=== PATIENT | male | born 1975 | race Two or more races ===

== ENCOUNTER 2020-10-07 00:26 | Inpatient (IN) | payer MEDICAID, OTHER ==
[2020-10-07] VITALS (71 sets, daily range): BP systolic 87–137; BP diastolic 58–88
[~2020-10-07] VITALS: Ht 165.1 cm; Wt 72.0 kg
[2020-10-07] MEDS ORDERED: ONDANSETRON HCL/PF 4 MG/2 ML VIAL IVP ONE (01:00)
[2020-10-07] MEDS ORDERED: IV NS 0.9% 1,000 ML BAG IV ONE ×2 (01:00→01:30)
[2020-10-07] MEDS ORDERED: ONDANSETRON HCL/PF 4 MG/2 ML VIAL ONE (01:15)
[2020-10-07] MEDS ORDERED: LIDOCAINE 2% JEL UROJET 10 ML MM ONE (01:15)
[2020-10-07] MEDS ORDERED: ACETAMINOPHEN 650 MG/SUPP.RECT RC ONE ×2 (01:16→01:30)
[2020-10-07 01:42] LABS: BASOPHILS # (AUTO) 0.1 K/uL (0.0-0.2); BASOPHILS % (AUTO) 0.7 % (0.0-2.0); HEMATOCRIT 55 % (39-51); HEMOGLOBIN 17.4 g/dL (13.5-17.5); LYMPHOCYTES # (AUTO) 2.9 K/uL (0.8-4.8); LYMPHOCYTES % (AUTO) 13.7 % (20.0-44.0); MEAN CORPUSCULAR HGB CONC 32 g/dl (31.0-36.0); MEAN CORPUSCULAR VOLUME 99 fL (80-96); MONOCYTES % (AUTO) 4.8 % (2.0-12.0); NEUTROPHILS % (AUTO) 80.8 % (43.0-81.0); PLATELET COUNT (AUTO) 197 K/uL (150-450); RED BLOOD CELL COUNT(AUTO) 5.53 MIL/uL (4.5-6.0)
--- NOTE | 2020-10-07 01:57 | NUR ---
PATIENT CAME TO ER [facility] FROM [facility] FOR C/O FEVER, HYPERGLYCEMIA, AND SOB. PATIENT IS ALERT AND ORIENTED x0. PATIENT IS GIVEN 6L OF SIMPLE FACE MASK AND SATURATING AT 95%. PATIENT IS CONNECTED TO TA CARDIAC MONITIR
[2020-10-07 02:04] LABS: ALANINE AMINOTRANSFERASE 100 U/L (12-78); ALBUMIN 3.1 g/dL (3.4-5.0); ALKALINE PHOSPHATASE 137 U/L (46-116); ASPARTATE AMINOTRANSFERASE 39 U/L (15-37); BILIRUBIN,DIRECT 0.1 mg/dL (0.0-0.2); BILIRUBIN,TOTAL 0.4 mg/dL (0.2-1.0); CALCIUM, SERUM 8.8 mg/dL (8.5-10.1); CARBON DIOXIDE 29 mmol/L (21-32); CHLORIDE 120 mmol/L (98-107); CREATININE 4.8 mg/dL (0.6-1.3); LIPASE 248 U/L (73-393); POTASSIUM 3.7 mmol/L (3.5-5.1); TOTAL PROTEIN, SERUM 7.6 g/dL (6.4-8.2)
[2020-10-07 02:06] LABS: GLUCOSE 588 mg/dL (74-106); UREA NITROGEN, BLOOD 141 mg/dL (7-18)
[2020-10-07] MEDS: NOREPINEPHRINE 8 MG in IV NS 0.9% 242 ML IV PRN ×3 (02:06→06:56)
[2020-10-07 02:07] LABS: SODIUM SERUM 163 mmol/L (136-145)
[2020-10-07] MEDS ORDERED: PIPERACILLIN /TAZOBACTAM 3.375 G VIAL IV ONE (02:09)
[2020-10-07] MEDS ORDERED: VANCOMYCIN 1 GM VIAL ONE (02:09)
[2020-10-07] MEDS ORDERED: ASPIRIN 300 MG/SUPP.RECT RC ONE ×2 (02:10→02:30)
[2020-10-07 02:14] LABS: BILIRUBIN,URINE SMALL (NEGATIVE); COLOR,URINE YELLOW (YELLOW); LEUKOCYTE ESTERASE ,URINE NEGATIVE (NEGATIVE); NITRITE, URINE NEGATIVE (NEGATIVE); PH,URINE 5.5 (5.0-8.0); PROTEIN,URINE >=300 mg/dl (NEGATIVE); UGLUCOSE >=1000 mg/dL (NEGATIVE); UROBILINOGEN,URINE 0.2 EU/dL (0.2)
[2020-10-07 02:20] LABS: BACTERIA,URINE None seen /HPF (None Seen); SQUAMOUS EPITHELIAL CELL,UR None Seen /HPF (None Seen); URINE AMORPHOUS PHOSPHATES Moderate /HPF (None Seen); WBC,URINE 0-2 /HPF (0-3)
[2020-10-07] MEDS ORDERED: PIPERACILLIN /TAZOBACTAM 3.375 G in IV D5W 50 ML IV ONE (02:30)
[2020-10-07] MEDS ORDERED: VANCOMYCIN 1 GM in IV D5W 250 ML IV ONE (02:30)
[2020-10-07] MEDS ORDERED: NOREPINEPHRINE 4 MG/4 ML AMPUL IV ONE (02:31)
--- NOTE | 2020-10-07 02:36 | NUR ---
LEVOPHED IV STARTED PER MD'S ORDER
[2020-10-07] MEDS ORDERED: INSULIN REGULAR, HUMAN 100 UNIT/ML 10 ML VIAL ONE (03:19)
[2020-10-07] MEDS ORDERED: INSULIN REGULAR, HUMAN 100 UNIT/ML 10 ML VIAL IV ONE ×2 (03:30→06:00)
--- NOTE | 2020-10-07 03:39 | NUR ---
report given to Yissel MILLARD for maged.
--- NOTE | 2020-10-07 03:50 | NUR ---
MANOHAR DAVID DNP PAGED PER ER MD ORDER.
--- NOTE | 2020-10-07 04:14 | NUR ---
MANOHAR DAVID DNP PAGED PER ER MD ORDER.
[2020-10-07] MEDS ORDERED: DOCU100C36 PO (04:42)
[2020-10-07] MEDS ORDERED: APIX2.5T PO (04:43)
[2020-10-07] MEDS ORDERED: LEVE500T9 PO (04:44)
--- NOTE | 2020-10-07 04:50 | NUR ---
WINDOW SHADE CLOTH SEWER RCD PT FROM ER W/O ADMISSION ORDERS
[2020-10-07] MEDS ORDERED: DEXTROSE 50%-WATER 50 ML DISP.SYRIN IV PRN ×2 (05:30→21:00)
[2020-10-07] MEDS ORDERED: DOCUSATE SODIUM 100 MG CAPSULE PO ONE (05:30)
[2020-10-07] MEDS ORDERED: INSULIN REGULAR, HUMAN 100 UNIT/ML 3 ML VIAL SQ PRN (05:30)
[2020-10-07 05:44] LABS: CALCIUM, SERUM 7.6 mg/dL (8.5-10.1); CREATININE 4.3 mg/dL (0.6-1.3); POTASSIUM 4.4 mmol/L (3.5-5.1)
[2020-10-07] MEDS ORDERED: NOREPINEPHRINE 8 MG in IV NS 0.9% 242 ML IV PRN (06:00)
[2020-10-07] MEDS ORDERED: BLOOD SUGAR DIAGNOSTIC 1 EACH STRIP IN SCH (06:00)
[2020-10-07] MEDS: IV 1/2NS 1000 ML 1,000 ML IV PRN ×4 (06:19→21:50)
[2020-10-07] MEDS ORDERED: INSULIN REGULAR, HUMAN 100 UNIT in IV NS 0.9% 99 ML IV PRN (07:00)
--- NOTE | 2020-10-07 07:00 | NUR ---
RECEIVED PT ON BED ASLEEP LETHARGIC, ON 10L O2 VIA MASK SPO2 92-95% NO SOB NOTED TELE MONITOR READS SINUS TACHY 102, HAVE LFA#20 WITH ONGOING LEVOPHED @ 0.3 MCG/KG/MIN AND 1/2 NS @ 200ML/HR INFUSING WELL, VAIL CATHETER DRAINING DARK YELLOW URINE BED ON LOWEST POSITION AND LOCKED SIDE RAILS UP X2 WILL CONT TO MONITOR
[2020-10-07] MEDS ORDERED: Z GUARD REMEDY 2 OZ OINT TP PRN (07:30)
[2020-10-07] MEDS ORDERED: ACETAMINOPHEN 325 MG TABLET PO PRN (07:30)
[2020-10-07] MEDS ORDERED: ZOLPIDEM TARTRATE 5 MG TABLET PO PRN (07:30)
[2020-10-07] MEDS ORDERED: ONDANSETRON HCL/PF 4 MG/2 ML VIAL IVP PRN (07:30)
[2020-10-07] MEDS ORDERED: HYDROCORTISONE SOD SUCCINATE 100 MG/2 ML VIAL IV SCH (08:30)
[2020-10-07 08:45] LABS: CHOLESTEROL 149 mg/dL (<200); HDL CHOLESTEROL 20 mg/dL (40-60); LDL 56 mg/dL (0-99); TRIGLYCERIDES 464 mg/dL (30-150)
[2020-10-07 08:45] LABS: ABG BASE EXCESS -3.5 mmol/L; ABG OXYGEN SATURATION 92.3 % (92.0-98.5); ABG PH 7.321 (7.350-7.450); AaDO2 310.3 mmHg; COHb 0.3 % (0.5-1.5); MetHb 0.3 % (0.0-1.5); O2Hb 91.7 % (94.0-97.0); SITE, ABG Right Radial; VENT MODE, BG 10LPM VIA SIMPLE MASK
[2020-10-07] MEDS: LEVETIRACETAM SOL (5 ML) 100 MG/ML UDC PO SCH ×2 (08:46→21:20)
[2020-10-07] MEDS: APIXABAN 2.5 MG TABLET PO SCH ×2 (08:47→17:16)
[2020-10-07 11:12] LABS: CALCIUM, SERUM 7.2 mg/dL (8.5-10.1); CREATININE 3.8 mg/dL (0.6-1.3); POTASSIUM 3.9 mmol/L (3.5-5.1)
[2020-10-07] MEDS: BLOOD SUGAR DIAGNOSTIC 1 EACH STRIP IN SCH ×10 (11:14→20:18)
--- NOTE | 2020-10-07 11:28 | NUR ---
REPORTED TO DR. HOFF THAT CORTISOL LVL OF THE PT IS 46.1 WITH ORDER TO DC JANNETTE MANNING NOTED AND CARRIED OUT
[2020-10-07] MEDS ORDERED: FLUDROCORTISONE 0.1 MG TABLET NG SCH (12:00)
[2020-10-07] MEDS: PIPERACILLIN /TAZOBACTAM 2.25 G in IV D5W 50 ML IV SCH ×3 (12:04→23:29)
--- NOTE | 2020-10-07 14:45 | NUR ---
RN/ICU-RECEIVED PT. FROM RICARDO DYER, PT. SLEEPING, AROUSABLE, WOLOF SPEAKING, NODS HEAD WHEN ASKED IF OK, OTHERWISE DOES NOT FOLLOW COMMANDS AT THIS TIME. BREATHING COMES EASY W/ O2 SUPPORT OF 10L SM, SATS-99%, EKG SR W/ HR-91. BP-103/68, ON LEVOPHED DRIP AT 0.06 MCG/KG/MIN. WILL TITRATE TO KEEP SBP>90 PER PROTOCOL. ON INSULIN DRIP AT 3UNITS PER HR PER PROTOCOL. WILL CONTINUE ACCU CHECKS Q1HR USING FORMULA BS X 1.5/100. AFEBRILE. PT. IS A FULL CODE. NO S/S OF PAIN OR DISTRESS.
[2020-10-07 15:14] LABS: CALCIUM, SERUM 7.2 mg/dL (8.5-10.1); CREATININE 3.6 mg/dL (0.6-1.3); POTASSIUM 3.8 mmol/L (3.5-5.1)
--- NOTE | 2020-10-07 17:08 | NUR ---
rRN/ICU- SPOKE TO DR. NATHAN R/T PT. LATEST BS-199, W/ PHONE ORDER TO CONTINUE ACCUCHECK NEXT 2 HRS AND REFER TO HOSPITALIST NAVAL INSPECTOR AFTER. CONTINUE CURRENT IVF.
--- NOTE | 2020-10-07 17:38 | NUR ---
RN/ICU-DR. ROSADO HERE TO SEE PT. UPDATE GIVEN TO SAME.
--- NOTE | 2020-10-07 19:00 | NUR ---
RN/ICU- PT. REMAINS ON INSULIN DRIP AT 3 UNITS/HR. LATEST ACCU CHECK 212, WILL NOTIFY HOSPITALIST MOBILE SOLUTIONS ARCHITECT. ON LEVOPHED DRIP AT 0.04 MCG/KG/MIN. LATEST BP-116/80 WILL CONTINUE TO TITRATE PER PROTOCOL. PT. STATUS UNCHANGED. REPOT GIVEN TO FREEMAN AMES.
--- NOTE | 2020-10-07 19:30 | NUR ---
FIELD ACCOUNT DIRECTOR RCD PT W/DX SEPSIS. NSR ON MONITOR. SIMPLE MASK 10 L SATURATION 100%. LEVOPHED AT 0.04 MCG/KG/MIN. GTUBE WITH ORDER TO START TUBE FEEDING NOTED. SKIN INTACT. VAIL CATHETER DRAINING YELLOW URINE WITH SEDIMENT. RIVKA PICC LINE WITH 1/2 NS @ 200 ML/HR. PT IS AWAKE. MUMBLES AND IS ABLE TO SAY SOME WORDS.
[2020-10-07 19:44] LABS: CREATININE 3.2 mg/dL (0.6-1.3); POTASSIUM 3.9 mmol/L (3.5-5.1)
--- NOTE | 2020-10-07 20:30 | NUR ---
BIOMASS PLANT MANAGER LEVOPHED TITRATED OFF 120/75 HR 83
[2020-10-07] MEDS: GLUCERNA 1.2 1,000 ML BOTTLE GT PRN (21:00)
--- NOTE | 2020-10-07 21:00 | NUR ---
MAINTENANCE REPAIRMAN INSULIN DRIP TITRATED OFF PER VEGETABLE I FARMWORKER ORDER; BEGIN Q6HR ACCU CHECK AT MIDNIGHT
[2020-10-07 22:18] LABS: CALCIUM, SERUM 6.9 mg/dL (8.5-10.1); CREATININE 3.1 mg/dL (0.6-1.3); POTASSIUM 3.7 mmol/L (3.5-5.1)
[2020-10-07] MEDS: INSULIN GLARGINE, 100 UNIT/ML CARTRIDGE SQ SCH (22:53)
[2020-10-08] VITALS (25 sets, daily range): BP systolic 90–109; BP diastolic 37–68
[2020-10-08] MEDS: BLOOD SUGAR DIAGNOSTIC 1 EACH STRIP IN SCH ×5 (00:40→23:24)
[2020-10-08] MEDS: INSULIN REGULAR, HUMAN 100 UNIT/ML 3 ML VIAL SQ PRN ×5 (00:42→23:27)
--- NOTE | 2020-10-08 02:30 | NUR ---
AIR AND HYDRONIC BALANCING TECHNICIAN PT AGGRESSIVE DURING BED BATH; ATTEMPTING TO PUNCH STAFF WITH LEFT HAND AND USING PROFANITY.
[2020-10-08] MEDS: IV 1/2NS 1000 ML 1,000 ML IV PRN ×2 (04:15→12:05)
[2020-10-08 04:53] LABS: CALCIUM, SERUM 6.8 mg/dL (8.5-10.1); CREATININE 2.8 mg/dL (0.6-1.3); MAGNESIUM 2.4 mg/dL (1.8-2.4); PHOSPHORUS 4.2 mg/dL (2.5-4.9); POTASSIUM 3.2 mmol/L (3.5-5.1)
[2020-10-08 05:18] LABS: BASOPHILS # (AUTO) 0.1 K/uL (0.0-0.2); BASOPHILS % (AUTO) 0.7 % (0.0-2.0); EOSINOPHILS % (AUTO) 0.3 % (0.0-6.0); HEMATOCRIT 38 % (39-51); LYMPHOCYTES # (AUTO) 2.9 K/uL (0.8-4.8); LYMPHOCYTES % (AUTO) 20.4 % (20.0-44.0); MEAN CORPUSCULAR HGB CONC 32 g/dl (31.0-36.0); MEAN CORPUSCULAR VOLUME 97 fL (80-96); MONOCYTES # (AUTO) 0.7 K/uL (0.1-1.30); MONOCYTES % (AUTO) 4.7 % (2.0-12.0); NEUTROPHILS # (AUTO) 10.4 K/uL (1.8-8.9); NEUTROPHILS % (AUTO) 73.9 % (43.0-81.0); PLATELET COUNT (AUTO) 105 K/uL (150-450); RED BLOOD CELL COUNT(AUTO) 3.92 MIL/uL (4.5-6.0); WHITE BLOOD COUNT (AUTO) 14.1 K/uL (4.3-11.0)
[2020-10-08 05:25] LABS: HEMOGLOBIN 12.2 g/dL (13.5-17.5)
[2020-10-08] MEDS: PIPERACILLIN /TAZOBACTAM 2.25 G in IV D5W 50 ML IV SCH ×4 (05:30→23:19)
--- NOTE | 2020-10-08 07:30 | NUR ---
OPENING NOTE: REPORT RECEIVED FROM SELAM MILLARD. PT AWAKE, NON COOPERATIVE, MUMBLES WORDS. ABLE TO MOVE LEFT ARM, SOMETIMES GETS AGGRESSIVE WITH ARM. TUBE FEEDING INFUSING WITHOUT DIFFICULTY. IV FLUIDS PER MD ORDERS. PT CHECKED ON HOURLY AND PRN BY NURSING STAFF.
[2020-10-08] MEDS: LEVETIRACETAM SOL (5 ML) 100 MG/ML UDC PO SCH ×2 (08:44→22:07)
[2020-10-08] MEDS: APIXABAN 2.5 MG TABLET PO SCH ×2 (08:46→17:38)
[2020-10-08] MEDS: INSULIN GLARGINE, 100 UNIT/ML CARTRIDGE SQ SCH ×2 (08:47→22:09)
--- NOTE | 2020-10-08 09:40 | NUR ---
PHONE REPORT GIVEN TO JOVAN MILLARD FOR PT TRANSFER TO ROOM 116-1
--- NOTE | 2020-10-08 10:35 | NUR ---
PT TRANSFERRED TO ROOM 116-1. SALES AND SERVICE REPRESENTATIVE PUT PT'S TELEMETRY ON PATIENT. NO PERSONAL BELONGINGS NOTED IN ROOM. JOVAN RN WAS IN PT'S ROOM PRIOR TO MULTIPLE SPINDLE ROUTER OPERATOR LEAVING ROOM.
--- NOTE | 2020-10-08 10:48 | NUR ---
ELECTRONIC TECHNICIAN NOTE RECEIVED PATIENT FROM ICU. PATIENT IS AWAKE AND ALERT; MUMBLES WORDS. VITALS: 101/60 HR 76 RR 18 TEMP 97.6 O2 98%. VAIL CATHETER NOTED - INTACT AND PATENT, EMPTIED BEFORE ARRIVAL TO ZEINAB FLOOR. IV ACCESS TO LEFT FA #20, LEFT HAND #22, AND RIGHT UPPER ARM PICC - RUNNING 1/2 NS @ 100ML/HR. PEG TUBE NOTED - INTACT, RUNNING GLUCERNA @ 70ML/HR. SKIN INTACT. SAFETY MEASURES IN PLACE. CALL LIGHT WITHIN REACH. WILL CONTINUE TO MONITOR.
[2020-10-08] MEDS ORDERED: VANCOMYCIN 1 GM in IV D5W 250 ML IV SCH (14:00)
--- NOTE | 2020-10-08 17:10 | NUR ---
FINANCIAL SERVICES COUNSELORDENTAL ASSOCIATE NOTE PATIENT A/OX1; OPENS EYES, NODS HEAD, APHASIC. TOLERATING ROOM AIR WELL WITH NO SOB. EXTERNAL DIESEL MAINTENANCE TECHNICIAN READS NSR AT 79. NO S/S OF PAIN OR DISCOMFORT. GTUBE PEG FEEDING GLUCERNA @70ML/HR; PATENT AND INTACT. LFA #20G S/L , L HAND #22G S/L, RIVKA PICCLINE 1/2 NS @ 100ML/HR; PATENT AND INTACT. F/C DRAINING URINE; PATENT AND INTACT. SAFETY MEASURES IN PLACE: BED IN LOWEST LOCKED POSITION, SIDE RAILS UPX2, CALL LIGHT WITHIN EASY REACH, BED ALARM ON. PATIENT IN STABLE CONDITION;WILL CONTINUE PLAN OF CARE.
--- NOTE | 2020-10-08 17:13 | NUR ---
TRANSFERRED PATIENT TO [facility]. REPORT GIVEN TO RADHA. PATIENT STABLE AND WAS TRANSFERRED WITH ALL BELONGINGS, MEDICATIONS, AND FEEDINGS.
[2020-10-08] MEDS: GLUCERNA 1.2 1,000 ML BOTTLE GT PRN (17:52)
[2020-10-09] MEDS: IV 1/2NS 1000 ML 1,000 ML IV PRN ×2 (02:11→21:15)
[2020-10-09] MEDS: PIPERACILLIN /TAZOBACTAM 2.25 G in IV D5W 50 ML IV SCH ×4 (05:35→23:03)
[2020-10-09] MEDS: BLOOD SUGAR DIAGNOSTIC 1 EACH STRIP IN SCH ×4 (05:44→23:03)
[2020-10-09] MEDS: INSULIN REGULAR, HUMAN 100 UNIT/ML 3 ML VIAL SQ PRN ×4 (05:46→23:03)
--- NOTE | 2020-10-09 07:29 | NUR ---
WET POUR MIXER CLOSING NOTE PATIENT A/OX1; OPENS EYES, NODS HEAD, APHASIC. TOLERATING ROOM AIR WELL WITH NO SOB. EXTERNAL VENEER SPLICER READS NSR AT 80'S. NO S/S OF PAIN OR DISCOMFORT. GTUBE PEG FEEDING GLUCERNA @70ML/HR; PATENT AND INTACT. LFA #20G S/L , L HAND #22G S/L, RIVKA PICCLINE 1/2 NS @ 100ML/HR; PATENT AND INTACT. F/C DRAINING CLEAR YELLOW URINE; PATENT AND INTACT. SAFETY MEASURES IN PLACE: BED IN LOWEST LOCKED POSITION, SIDE RAILS UPX2, CALL LIGHT WITHIN EASY REACH, BED ALARM ON. PATIENT IN STABLE CONDITION; ENDORSED PLAN OF CARE.
--- NOTE | 2020-10-09 07:30 | NUR ---
ASSISTANT DISTRICT ATTORNEY OPENING NOTE RECEIVED PATIENT ON BED, A/OX1; OPENS EYES, NODS HEAD, APHASIC. TOLERATING ROOM AIR WELL WITH NO SOB. EXTERNAL HORTICULTURE SUPERINTENDENT READS NSR AT 77 WITH NO S/S OF PAIN OR DISCOMFORT. GTUBE PEG FEEDING GLUCERNA @70ML/HR; PATENT AND INTACT. LFA #20G S/L , L HAND #22G S/L, RIVKA PICCLINE 1/2 NS @ 100ML/HR; PATENT AND INTACT. WITH F/C DRAINING CLEAR YELLOW URINE; PATENT AND INTACT. SAFETY MEASURES IN PLACE: BED IN LOWEST LOCKED POSITION, SIDE RAILS UPX2, CALL LIGHT WITHIN EASY REACH, BED ALARM ON. WILL CONTINUE TO MONITOR..
[2020-10-09 07:47] LABS: BASOPHILS % (AUTO) 0.3 % (0.0-2.0); HEMATOCRIT 31 % (39-51); HEMOGLOBIN 10.1 g/dL (13.5-17.5); LYMPHOCYTES # (AUTO) 1.8 K/uL (0.8-4.8); LYMPHOCYTES % (AUTO) 17.8 % (20.0-44.0); MEAN CORPUSCULAR HGB CONC 32 g/dl (31.0-36.0); MEAN CORPUSCULAR VOLUME 96 fL (80-96); MONOCYTES # (AUTO) 0.4 K/uL (0.1-1.30); MONOCYTES % (AUTO) 4.2 % (2.0-12.0); NEUTROPHILS # (AUTO) 7.6 K/uL (1.8-8.9); NEUTROPHILS % (AUTO) 74.7 % (43.0-81.0); PLATELET COUNT (AUTO) 89 K/uL (150-450); RED BLOOD CELL COUNT(AUTO) 3.24 MIL/uL (4.5-6.0); WHITE BLOOD COUNT (AUTO) 10.2 K/uL (4.3-11.0)
[2020-10-09 08:06] LABS: CALCIUM, SERUM 7.5 mg/dL (8.5-10.1); POTASSIUM 3.4 mmol/L (3.5-5.1)
[2020-10-09] MEDS: POTASSIUM CL. PREMIX PERIPHER. 50 ML IV SCH ×4 (08:45→13:23)
[2020-10-09] MEDS: LEVETIRACETAM SOL (5 ML) 100 MG/ML UDC PO SCH ×2 (08:45→20:57)
[2020-10-09] MEDS: APIXABAN 2.5 MG TABLET PO SCH ×2 (08:47→16:39)
[2020-10-09] MEDS: INSULIN GLARGINE, 100 UNIT/ML CARTRIDGE SQ SCH ×2 (08:48→23:02)
[2020-10-09] MEDS: GLUCERNA 1.2 1,000 ML BOTTLE GT PRN (16:37)
[2020-10-09] MEDS: VANCOMYCIN 1 GM in IV D5W 250 ML IV SCH (16:38)
--- NOTE | 2020-10-09 18:55 | NUR ---
SALMON GILLNET VESSEL OPERATOR CLOSING NOTE PATIENT ALERT AND ORIENTED X2; OPENS EYES, NODS HEAD, APHASIC. TOLERATING ROOM AIR WELL WITH NO SOB. EXTERNAL SACK REPAIRER READS NSR AT 83 . NO S/S OF PAIN OR DISCOMFORT. GTUBE PEG FEEDING GLUCERNA @70ML/HR; PATENT AND INTACT. LFA #20G S/L , L HAND #22G S/L, RIVKA PICCLINE 1/2 NS @ 100ML/HR; PATENT AND INTACT. F/C DRAINING CLEAR YELLOW URINE; PATENT AND INTACT. SAFETY MEASURES IN PLACE: BED IN LOWEST LOCKED POSITION, SIDE RAILS UPX2, CALL LIGHT WITHIN EASY REACH, BED ALARM ON. PATIENT IN STABLE CONDITION; WILL ENDORSE FOR CONTINUITY OF CARE TO THE NEXT SHIFT.
[2020-10-09 20:00] VITALS: BP 125/82
[2020-10-10] VITALS: BP 140/64
[2020-10-10] MEDS: BLOOD SUGAR DIAGNOSTIC 1 EACH STRIP IN SCH ×4 (05:33→23:02)
[2020-10-10] MEDS: INSULIN REGULAR, HUMAN 100 UNIT/ML 3 ML VIAL SQ PRN ×4 (05:35→23:02)
[2020-10-10] MEDS: IV 1/2NS 1000 ML 1,000 ML IV PRN ×2 (05:59→23:49)
[2020-10-10] MEDS: PIPERACILLIN /TAZOBACTAM 2.25 G in IV D5W 50 ML IV SCH ×2 (06:05→12:37)
[2020-10-10 06:49] LABS: BASOPHILS % (AUTO) 0.2 % (0.0-2.0); HEMATOCRIT 30 % (39-51); HEMOGLOBIN 9.9 g/dL (13.5-17.5); LYMPHOCYTES # (AUTO) 1.9 K/uL (0.8-4.8); MEAN CORPUSCULAR HGB CONC 33 g/dl (31.0-36.0); MEAN CORPUSCULAR VOLUME 95 fL (80-96); MONOCYTES # (AUTO) 0.4 K/uL (0.1-1.30); NEUTROPHILS # (AUTO) 5.3 K/uL (1.8-8.9); NEUTROPHILS % (AUTO) 66.8 % (43.0-81.0); PLATELET COUNT (AUTO) 97 K/uL (150-450); RED BLOOD CELL COUNT(AUTO) 3.12 MIL/uL (4.5-6.0)
--- NOTE | 2020-10-10 07:18 | NUR ---
METAL EXTRUSION SUPERVISOR OPENING NOTE RECEIVED PATIENT ON BED, A/OX1; OPENS EYES, NODS HEAD, APHASIC. TOLERATING ROOM AIR WELL WITH NO SOB. EXTERNAL MILITARY SCIENCE INSTRUCTOR READS NSR AT 87 WITH NO S/S OF PAIN OR DISCOMFORT. GTUBE PEG FEEDING GLUCERNA @70ML/HR; PATENT AND INTACT. LFA #20G S/L , L HAND #22G S/L, RIVKA PICCLINE 1/2 NS @ 100ML/HR; PATENT AND INTACT. WITH F/C DRAINING CLEAR YELLOW URINE; PATENT AND INTACT. SAFETY MEASURES IN PLACE: BED IN LOWEST LOCKED POSITION, SIDE RAILS UPX2, CALL LIGHT WITHIN EASY REACH, BED ALARM ON. WILL CONTINUE TO MONITOR
[2020-10-10 07:36] LABS: CALCIUM, SERUM 7.6 mg/dL (8.5-10.1); CREATININE 1.5 mg/dL (0.6-1.3); POTASSIUM 3.3 mmol/L (3.5-5.1)
[2020-10-10 08:00] VITALS: BP 141/89
[2020-10-10] MEDS: LEVETIRACETAM SOL (5 ML) 100 MG/ML UDC PO SCH ×2 (08:34→21:44)
[2020-10-10] MEDS: POTASSIUM CL. PREMIX PERIPHER. 50 ML IV SCH ×4 (08:34→11:39)
[2020-10-10] MEDS: INSULIN GLARGINE, 100 UNIT/ML CARTRIDGE SQ SCH ×2 (08:35→23:02)
[2020-10-10] MEDS: APIXABAN 2.5 MG TABLET PO SCH ×2 (08:42→17:10)
[2020-10-10] MEDS: GLUCERNA 1.2 1,000 ML BOTTLE GT PRN (09:47)
--- NOTE | 2020-10-10 10:12 | NUR ---
RN NOTE PLATELETS @ 97, MD NOTIFIED AND MD ORDERED TO CONTINUE ABIXABAN AT THIS TIME.
--- NOTE | 2020-10-10 15:26 | NUR ---
RN NOTE SPOKE WITH PHARMACY REGARDING 1600 DOSE OF VANCO, STATED OKAY TO GIVE UNTIL NEXT TROUGH. WILL CONTINUE TO MONITOR
[2020-10-10] MEDS: VANCOMYCIN 1 GM in IV D5W 250 ML IV SCH (15:31)
[2020-10-10 16:00] VITALS: BP 133/86
--- NOTE | 2020-10-10 17:39 | NUR ---
RN NOTE RECEIVED CALL FROM LAB REGARDING BLOOD CULTURES GRAM POSITIVE COCCI IN CLUSTERS SEEN ON GRAM STAIN, NOTIFIED, CONTINUE CURRENT ATB TREATMENT AT THIS TIME. WILL CONTINUE TO MONITOR
--- NOTE | 2020-10-10 18:31 | NUR ---
PARTY HOST CLOSING NOTE PATIENT ALERT AND ORIENTED X2; OPENS EYES, NODS HEAD, APHASIC. TOLERATING ROOM AIR WELL WITH NO SOB. EXTERNAL DOUGH PANNER READS NSR AT 87 . NO S/S OF PAIN OR DISCOMFORT. GTUBE PEG FEEDING GLUCERNA @70ML/HR; PATENT AND INTACT. LFA #20G S/L , L HAND #22G S/L, RIVKA PICCLINE 1/2 NS @ 100ML/HR; PATENT AND INTACT. F/C DRAINING CLEAR YELLOW URINE; PATENT AND INTACT. ALL MEDICATIONS GIVEN ORDERED. SAFETY MEASURES IN PLACE: BED IN LOWEST LOCKED POSITION, SIDE RAILS UPX2, CALL LIGHT WITHIN EASY REACH, BED ALARM ON. WILL ENDORSE TO ONCOMING SHIFT
[2020-10-10 20:37] VITALS: BP 139/86
[2020-10-11] VITALS: BP 116/83
[2020-10-11 04:51] VITALS: BP 127/84
[2020-10-11] MEDS: BLOOD SUGAR DIAGNOSTIC 1 EACH STRIP IN SCH ×3 (05:34→18:12)
[2020-10-11] MEDS: INSULIN REGULAR, HUMAN 100 UNIT/ML 3 ML VIAL SQ PRN (05:37)
[2020-10-11 06:42] LABS: BASOPHILS % (AUTO) 0.1 % (0.0-2.0); EOSINOPHILS % (AUTO) 4.7 % (0.0-6.0); HEMATOCRIT 31 % (39-51); HEMOGLOBIN 10.5 g/dL (13.5-17.5); LYMPHOCYTES # (AUTO) 1.9 K/uL (0.8-4.8); LYMPHOCYTES % (AUTO) 24.3 % (20.0-44.0); MEAN CORPUSCULAR HGB CONC 34 g/dl (31.0-36.0); MEAN CORPUSCULAR VOLUME 94 fL (80-96); MONOCYTES # (AUTO) 0.5 K/uL (0.1-1.30); MONOCYTES % (AUTO) 6.6 % (2.0-12.0); NEUTROPHILS # (AUTO) 4.9 K/uL (1.8-8.9); NEUTROPHILS % (AUTO) 64.3 % (43.0-81.0); PLATELET COUNT (AUTO) 104 K/uL (150-450); RED BLOOD CELL COUNT(AUTO) 3.31 MIL/uL (4.5-6.0); WHITE BLOOD COUNT (AUTO) 7.6 K/uL (4.3-11.0)
[2020-10-11 06:58] LABS: CREATININE 1.1 mg/dL (0.6-1.3); POTASSIUM 3.4 mmol/L (3.5-5.1)
[2020-10-11] MEDS: POTASSIUM CL. PREMIX PERIPHER. 50 ML IV SCH ×4 (08:17→10:45)
[2020-10-11] MEDS: IV 1/2NS 1000 ML 1,000 ML IV PRN (08:25)
[2020-10-11] MEDS: LEVETIRACETAM SOL (5 ML) 100 MG/ML UDC PO SCH ×3 (09:31→21:16)
[2020-10-11] MEDS: APIXABAN 2.5 MG TABLET PO SCH ×2 (09:33→18:00)
[2020-10-11] MEDS: INSULIN GLARGINE, 100 UNIT/ML CARTRIDGE SQ SCH ×2 (09:34→22:00)
[2020-10-11 09:35] VITALS: BP 141/90
[2020-10-11 14:00] VITALS: BP 138/95
--- NOTE | 2020-10-11 15:15 | NUR ---
TELE/RN NOTES PATIENT REFUSED TO DO BLOOD WORK FOR VANCO TROUGH. PHARMACY CALLED AND SAID TO JUST GO AHEAD AND GIVE THE 1600 VANCO IV ATB DOSE AND WILL RE-ORDER VANCO TROUGH FOR TOMORROW. NOTIFIED.
[2020-10-11] MEDS: VANCOMYCIN 1 GM in IV D5W 250 ML IV SCH (18:12)
--- NOTE | 2020-10-11 19:50 | NUR ---
MS/RN NOTES PATIENT REFUSED BLOOD SUGAR CHECK. PM NURSE NOTIFIED.
--- NOTE | 2020-10-11 19:52 | NUR ---
MS RN Opening Notes Patient was last seen sleeping in bed. Patient's alert and oriented x1-2. Patient's on room air with no respiratory distress noted. Patient has a RIVKA PICC line. Patient's in no acute distress at this time. Safety measures in place: Bed locked, bed alarm on, side rails up x3, and call light within reach of the patient. Will continue to monitor the patient.
[2020-10-11 20:00] VITALS: BP 129/90
--- NOTE | 2020-10-11 22:23 | NUR ---
MS RN Notes Patient refused his scheduled 2100 and 2200 medications. Risks have been explained to the patient. Patient refused to have his blood sugar checked at bedtime. Will continue to monitor the patient.
--- NOTE | 2020-10-11 22:42 | NUR ---
MS RN Notes Patient refused to have his 2 ordered blood cultures collected. KALYN Nieves was made aware. No new orders were given.
--- NOTE | 2020-10-12 | NUR ---
MS RN Notes Patient refused to have his blood sugar checked at 0000. Risks have been explained to the patient. Will continue to monitor the patient.
[2020-10-12] MEDS: IV 1/2NS 1000 ML 1,000 ML IV PRN (04:14)
[2020-10-12] MEDS: BLOOD SUGAR DIAGNOSTIC 1 EACH STRIP IN SCH ×4 (06:00→17:14)
--- NOTE | 2020-10-12 06:05 | NUR ---
MS RN Notes Patient refused to have his blood sugar checked at 0600. Risks have been explained to the patient. Will continue to monitor the patient.
[2020-10-12 06:22] LABS: BASOPHILS % (AUTO) 0.4 % (0.0-2.0); EOSINOPHILS % (AUTO) 4.2 % (0.0-6.0); HEMATOCRIT 34 % (39-51); HEMOGLOBIN 11.3 g/dL (13.5-17.5); LYMPHOCYTES % (AUTO) 26.6 % (20.0-44.0); MEAN CORPUSCULAR HGB CONC 34 g/dl (31.0-36.0); MEAN CORPUSCULAR VOLUME 94 fL (80-96); MONOCYTES # (AUTO) 0.5 K/uL (0.1-1.30); MONOCYTES % (AUTO) 6.9 % (2.0-12.0); NEUTROPHILS # (AUTO) 4.7 K/uL (1.8-8.9); NEUTROPHILS % (AUTO) 61.9 % (43.0-81.0); PLATELET COUNT (AUTO) 94 K/uL (150-450); RED BLOOD CELL COUNT(AUTO) 3.58 MIL/uL (4.5-6.0); WHITE BLOOD COUNT (AUTO) 7.6 K/uL (4.3-11.0)
[2020-10-12 06:27] LABS: CALCIUM, SERUM 8.3 mg/dL (8.5-10.1); POTASSIUM 3.3 mmol/L (3.5-5.1)
--- NOTE | 2020-10-12 07:21 | NUR ---
MS RN Closing Notes Patient was last seen awake in bed resting. Patient's alert and oriented x1. Patient's on room air with no respiratory distress noted. Patient has a RIVKA PICC line, which is running 0.45% NS at 50 ml/hour. Patient's in no acute distress at this time. Safety measures in place: Bed locked, bed alarm on, side rails up x3, and call light within reach of the patient. Will endorse care to the day shift nurse.
[2020-10-12] MEDS ORDERED: POTASSIUM CHLORIDE 20 MEQ POWDER PACKET GT SCH (09:00)
[2020-10-12] MEDS: APIXABAN 2.5 MG TABLET PO SCH ×2 (09:27→17:00)
[2020-10-12] MEDS: LEVETIRACETAM SOL (5 ML) 100 MG/ML UDC PO SCH ×2 (09:28→21:46)
[2020-10-12] MEDS ORDERED: POTASSIUM CHLORIDE 20 MEQ POWDER PACKET GT ONE (09:30)
[2020-10-12] MEDS: INSULIN GLARGINE, 100 UNIT/ML CARTRIDGE SQ SCH ×2 (09:31→22:00)
[2020-10-12] MEDS: INSULIN REGULAR, HUMAN 100 UNIT/ML 3 ML VIAL SQ PRN ×2 (12:26→17:21)
--- NOTE | 2020-10-12 14:47 | NUR ---
Brother of patient will visit tomorrow. and wants to see patient before signing contrast CT of abdomen questionnaire. Jose L Berkowitz RN
--- NOTE | 2020-10-12 15:41 | NUR ---
Laboratory unable to draw at this time. Patient agitation and refusal. Jose L Berkowitz RN
[2020-10-12] MEDS: VANCOMYCIN 1 GM in IV D5W 250 ML IV SCH (16:00)
--- NOTE | 2020-10-12 20:00 | NUR ---
MS RN NOTES PATIENT RESTING IN BED, ALERT/ORIENTED X 1, PT REPORTS NO PAIN AT THIS TIME, APPEARS COMFORTABLE. PT IS JAPANESE SPEAKING. PT STABLE ON RA, NO S/S OF DISTRESS OR SOB NOTED, BREATHING EVEN AND UNLABORED. G-TUBE SITE CLEAN, DRY AND INTACT, RUNNING GLUCERNA 1.2 @ 70 ML/HR, NO RESIDUAL, FLUSHED WITH 250 ML OF WATER. RIVKA PICC LINE INTACT AND FLUSHING WELL, SALINE LOCKED. PATIENT STATES HE HAS NO NEEDS AT THIS TIME. VAIL CATHETER INTACT AND DRAINING CLEAR YELLOW URINE. SAFETY MEASURES IN PLACE: CALL LIGHT WITHIN REACH, BED LOCKED IN LOWEST POSITION, SIDE RAILS UP X 3, BED ALARM ON. WILL CONTINUE TO MONITOR PATIENT THROUGHOUT SHIFT.
[2020-10-12 20:34] VITALS: BP 119/77
--- NOTE | 2020-10-12 21:15 | NUR ---
MS RN NOTES PATIENT BLOOD SUGAR 89. HELD LANTUS
[2020-10-13] MEDS: BLOOD SUGAR DIAGNOSTIC 1 EACH STRIP IN SCH ×5 (00:33→21:42)
--- NOTE | 2020-10-13 00:34 | NUR ---
MS RN NOTES PATIENT BLOOD SUGAR 104, NO INSULIN COVERAGE NEEDED PER SLIDING SCALE
[2020-10-13 06:13] LABS: BASOPHILS % (AUTO) 0.3 % (0.0-2.0); EOSINOPHILS % (AUTO) 4.4 % (0.0-6.0); HEMATOCRIT 31 % (39-51); HEMOGLOBIN 10.4 g/dL (13.5-17.5); LYMPHOCYTES % (AUTO) 32.1 % (20.0-44.0); MEAN CORPUSCULAR HGB CONC 33 g/dl (31.0-36.0); MEAN CORPUSCULAR VOLUME 95 fL (80-96); MONOCYTES # (AUTO) 0.5 K/uL (0.1-1.30); MONOCYTES % (AUTO) 7.9 % (2.0-12.0); NEUTROPHILS # (AUTO) 3.5 K/uL (1.8-8.9); NEUTROPHILS % (AUTO) 55.3 % (43.0-81.0); PLATELET COUNT (AUTO) 143 K/uL (150-450); RED BLOOD CELL COUNT(AUTO) 3.28 MIL/uL (4.5-6.0); WHITE BLOOD COUNT (AUTO) 6.4 K/uL (4.3-11.0)
--- NOTE | 2020-10-13 06:18 | NUR ---
MS RN CLOSING NOTES PATIENT SLEEPING IN BED, PT APPEARS COMFORTABLE. PT STABLE ON RA, NO S/S OF DISTRESS OR SOB NOTED, BREATHING EVEN AND UNLABORED. G-TUBE SITE CLEAN, DRY AND INTACT, RUNNING GLUCERNA 1.2 @ 70 ML/HR, NO RESIDUAL, FLUSHED WITH 250 ML OF WATER. RIVKA PICC LINE INTACT AND FLUSHING WELL, SALINE LOCKED. VAIL CATHETER INTACT AND DRAINING CLEAR YELLOW URINE. MEDICATIONS GIVEN ORDERED, PATIENT NEEDS MET THROUGHOUT SHIFT. SAFETY MEASURES IN PLACE: CALL LIGHT WITHIN REACH, BED LOCKED IN LOWEST POSITION, SIDE RAILS UP X 3, BED ALARM ON. WILL ENDORSE TO DAY SHIFT NURSE FOR CONTINUITY OF CARE
--- NOTE | 2020-10-13 06:30 | NUR ---
MS RN NOTE BLOOD SUGAR 120, NO COVERAGE PER SLIDING SCALE
[2020-10-13 06:31] LABS: CREATININE 1.1 mg/dL (0.6-1.3); MAGNESIUM 2.1 mg/dL (1.8-2.4); PHOSPHORUS 4.5 mg/dL (2.5-4.9); POTASSIUM 3.6 mmol/L (3.5-5.1)
--- NOTE | 2020-10-13 08:00 | NUR ---
alert and oriented x1.easily agitated.cousin called due to need of consent signing,pt. refusing all treatments and meds .
[2020-10-13] MEDS: LEVETIRACETAM SOL (5 ML) 100 MG/ML UDC PO SCH ×3 (09:00→21:13)
[2020-10-13] MEDS: INSULIN GLARGINE, 100 UNIT/ML CARTRIDGE SQ SCH ×3 (09:00→21:47)
--- NOTE | 2020-10-13 09:06 | NUR ---
PT NEEDS CONSENT,WAITING ON FAMILY TO COME IN PER RN IGOR, WILL CALL US WHEN READY
[2020-10-13 16:00] VITALS: BP 122/93
[2020-10-13] MEDS: VANCOMYCIN 1 GM in IV D5W 250 ML IV SCH (16:21)
[2020-10-13] MEDS: GLUCERNA 1.2 1,000 ML BOTTLE GT SCH (16:26)
--- NOTE | 2020-10-13 17:01 | NUR ---
family in to visit few hrs ago.
--- NOTE | 2020-10-13 17:33 | NUR ---
multiple lab results faxed to our lab to get sensitivity of ceftriaxone on them.rn called micro tech in lab to follow up with these.order put in from dr. regan.
[2020-10-13] MEDS: INSULIN REGULAR, HUMAN 100 UNIT/ML 3 ML VIAL SQ PRN (18:16)
--- NOTE | 2020-10-13 19:00 | NUR ---
MS RN OPENING NOTES RECEIVE PT AWAKE IN BED AT THIS TIME. AOx 1. GREENLANDIC SPEAKING WELL CONFUSED. NO S/O OF ANY ACUTE DISTRESS NOTED, DENIES PAIN AT THIS. PT ON RA, IV ACCESS IN RIVKA PICC LINE AND L FOREARM #20 SL INTACT, PATENT AND FLUSHING WELL. G TUBE IN PLACE. SAFETY PRECAUTIONS IN PLACE AND MAINTAINED AT ALL TIMES. BED IN LOWEST LOCKED POSITION, HOB ELEVATED, SIDE RAILS UP X2, CALL LIGHT AND TABLE WITHIN REACH. WILL CONTINUE TO MONITOR
[2020-10-13 19:01] LABS: THYROID STIMULATING HORMONE 1.779 uIU/mL (0.358-3.74)
[2020-10-13 20:00] VITALS: BP 127/90
[2020-10-14] MEDS: BLOOD SUGAR DIAGNOSTIC 1 EACH STRIP IN SCH ×3 (06:10→17:18)
[2020-10-14] MEDS: INSULIN REGULAR, HUMAN 100 UNIT/ML 3 ML VIAL SQ PRN ×2 (06:10→12:16)
--- NOTE | 2020-10-14 06:30 | NUR ---
MS RN CLOSING NOTE PT AWAKE AND RESTING IN BED COMFORTABLY AT THIS TIME. PT REMAINED STABLE THROUGHOUT SHIFT. ALL NEEDS, MEDICATIONS, CARE, AND PAIN CONTROL ADMINISTERED ANTICIPATED PER ORDER. PT REPOSITIONED Q2HR AND PRN. IV ACCESS INTACT, PATENT AND FLUSHING. VAIL CATHETER IN PLACE AND DRAINING YELLOW COLORED URINE. TOLERATING TUBE FEEDING WELL AT 70CC/HR. SAFETY PRECAUTIONS IN LOWEST LOCKED POSITION, HOB ELEVATED, SIDE RAILS UP X2. CALL LIGHT AND TABLE WITHIN REACH. WILL ENDORSE TO DAY SHIFT NURSE FOR JOANNA.
[2020-10-14 07:01] LABS: CALCIUM, SERUM 8.2 mg/dL (8.5-10.1); CREATININE 1.3 mg/dL (0.6-1.3); MAGNESIUM 2.1 mg/dL (1.8-2.4); PHOSPHORUS 4.8 mg/dL (2.5-4.9); POTASSIUM 3.5 mmol/L (3.5-5.1)
--- NOTE | 2020-10-14 07:43 | NUR ---
MS RN OPENING NOTES PATIENT AWAKE IN BED AT THIS TIME. AOx 1, WITH CONFUSION. ICELANDIC SPEAKING. NO S/S OF RESPIRATORY DISTRESS NOTED, DENIES PAIN AT THIS. PT ON RA AND TOLERATING WELL. IV ACCESS IN RIVKA PICC LINE AND L FOREARM #20. IV'S ARE INTACT, PATENT, AND FLUSHING WELL. G TUBE IN PLACE RUNNING @ 70 ML/HR. VAIL CATHETER IS DRAINING YELLOW URINE. BED IN LOWEST LOCKED POSITION, HOB ELEVATED, SIDE RAILS UP X2, CALL LIGHT AND TABLE WITHIN REACH. WILL CONTINUE TO MONITOR
[2020-10-14 08:00] VITALS: BP 144/84
[2020-10-14] MEDS ORDERED: IOHEXOL-300 100 ML VIAL IV ONE (08:40)
[2020-10-14] MEDS ORDERED: IV NS 0.9% 250 ML IV ONE (08:41)
[2020-10-14] MEDS ORDERED: CT SWABBABLE VALVE TRANS SET 1 EA INFUS.SET MC ONE (08:41)
[2020-10-14 09:22] VITALS: BP 144/84
[2020-10-14] MEDS: LEVETIRACETAM SOL (5 ML) 100 MG/ML UDC PO SCH ×2 (09:35→21:41)
[2020-10-14] MEDS: INSULIN GLARGINE, 100 UNIT/ML CARTRIDGE SQ SCH ×2 (09:36→22:24)
[2020-10-14] MEDS: LEVOFLOXACIN 500 MG /D5W 100ML 500 MG in PREMIX 1 EA IV SCH (15:35)
[2020-10-14 16:00] VITALS: BP 151/90
[2020-10-14 17:05] LABS: BASOPHILS % (AUTO) 0.7 % (0.0-2.0); EOSINOPHILS % (AUTO) 2.8 % (0.0-6.0); HEMATOCRIT 33 % (39-51); HEMOGLOBIN 10.9 g/dL (13.5-17.5); MEAN CORPUSCULAR HGB CONC 33 g/dl (31.0-36.0); MEAN CORPUSCULAR VOLUME 94 fL (80-96); MONOCYTES # (AUTO) 0.4 K/uL (0.1-1.30); MONOCYTES % (AUTO) 8.5 % (2.0-12.0); NEUTROPHILS # (AUTO) 3.3 K/uL (1.8-8.9); PLATELET COUNT (AUTO) 186 K/uL (150-450); RED BLOOD CELL COUNT(AUTO) 3.48 MIL/uL (4.5-6.0); WHITE BLOOD COUNT (AUTO) 4.9 K/uL (4.3-11.0)
--- NOTE | 2020-10-14 18:10 | NUR ---
MS RN CLOSING NOTES PATIENT AWAKE IN BED AT THIS TIME. AOx 1, WITH CONFUSION. NAMIBIAN SPEAKING. NO S/S OF RESPIRATORY DISTRESS NOTED, DENIES PAIN. BREATHING IS EVEN AND UNLABORED. PT ON RA AND TOLERATING WELL. IV ACCESS IN RIVKA PICC LINE AND L FOREARM #20. IV'S ARE INTACT, PATENT, AND FLUSHING WELL. G TUBE IN PLACE RUNNING GLUCERNA @ 70 ML/HR. VAIL CATHETER IS DRAINING YELLOW URINE. BED IN LOWEST LOCKED POSITION, HOB ELEVATED, SIDE RAILS UP X2, CALL LIGHT AND TABLE WITHIN REACH. WILL ENDORSE TO ONCOMING NURSE.
[2020-10-14] MEDS: GLUCERNA 1.2 1,000 ML BOTTLE GT SCH (18:15)
[2020-10-14] MEDS ORDERED: PEG 3350/NA SULF,BICARB,CL/KCL 4,000 ML BOTTLE GT ONE ×2 (18:30→20:00)
--- NOTE | 2020-10-14 19:30 | NUR ---
RN OPENING NOTE PATIENT IS IN BED, AWAKE. PATIENT IS KYRGYZ SPEAKING, A/O X 1. PATIENT IS CONFUSED. PATIENT HAS A G TUBE PLACED- GLUCERNA 70 ML/HR RUNNING. NO RESIDUAL. PATIENT'S IV ACCESS PATENT AND INTACT. PATIENT TO BE PLACED NPO POST MIDNIGHT FOR COLONOSCOPY IN AM. SAFETY MEASURES IN PLACE: BED IN LOCKED AND IN LOWEST POSITION, CALL LIGHT WITHIN REACH, SIDE RAILS UP. WILL MONITOR PATIENT CLOSELY.
[2020-10-14 20:00] VITALS: BP 135/89
--- NOTE | 2020-10-14 22:00 | NUR ---
RN NOTE OBTAINED PROCEDURE CONSENT FOR COLONOSCOPY, ANESTHESIA, AND BLOOD TRANSFUSION CONSENT FROM CARMELITA QUESADA PATIENT'S COUSIN. WITNESSED AND VERIFIED WITH MEIR MILLARD. Addendum: 10/15/20 at 0535 by MEAGAN GILBERT RN BS 166. JILLIAN FERNANDEZ. TF STILL CONTINUOUS UNTIL MIDNIGHT.
[2020-10-14 23:53] LABS: OCCULT BLOOD STOOL NEGATIVE (NEGATIVE)
--- NOTE | 2020-10-15 | NUR ---
BS 161 MG/DL. NO COVERAGE GIVEN D/T NPO STATUS
[2020-10-15] MEDS: BLOOD SUGAR DIAGNOSTIC 1 EACH STRIP IN SCH ×5 (00:19→23:49)
[2020-10-15] MEDS: INSULIN REGULAR, HUMAN 100 UNIT/ML 3 ML VIAL SQ PRN ×3 (00:19→23:56)
--- NOTE | 2020-10-15 06:51 | NUR ---
RN CLOSING NOTE PATIENT EYES CLOSED, EASILY AROUSED. PATIENT REMAINS TO BE CONFUSED, A/O X 1. NPO STATUS MAINTAINED STARTING MIDNIGHT. BS 97 MG/DL, NO COVERAGE GIVEN. BOWEL PREP ADMINISTERED. GTUBE PATENT AND INTACT, VAIL CATHETER DRAINING YELLOW URINE VIA GRAVITY. ALL NEEDS MET AND ATTENDED, ALL ORDERS CARRIED OUT. SAFETY MEASURES IMPLEMENTED. WILL ENDORSE TO DAY SHIFT NURSE FOR JOANNA. Addendum: 10/15/20 at 0656 by MEAGAN GILBERT RN NOTIFIED MD SEAN LINO OF POSITIVE RESULTS OF REPEAT BLOOD CX: GRAM + COCCI CLUSTERS AND GRAM + RODS. STATES THAT MORNING TEAM WILL TAKE CARE OF IT.
[2020-10-15 07:31] LABS: BASOPHILS % (AUTO) 0.4 % (0.0-2.0); EOSINOPHILS % (AUTO) 1.5 % (0.0-6.0); HEMATOCRIT 33 % (39-51); HEMOGLOBIN 11.1 g/dL (13.5-17.5); LYMPHOCYTES % (AUTO) 21.9 % (20.0-44.0); MEAN CORPUSCULAR HGB CONC 33 g/dl (31.0-36.0); MEAN CORPUSCULAR VOLUME 94 fL (80-96); MONOCYTES # (AUTO) 0.4 K/uL (0.1-1.30); MONOCYTES % (AUTO) 7.9 % (2.0-12.0); NEUTROPHILS # (AUTO) 3.1 K/uL (1.8-8.9); NEUTROPHILS % (AUTO) 68.3 % (43.0-81.0); PLATELET COUNT (AUTO) 192 K/uL (150-450); RED BLOOD CELL COUNT(AUTO) 3.57 MIL/uL (4.5-6.0); WHITE BLOOD COUNT (AUTO) 4.5 K/uL (4.3-11.0)
--- NOTE | 2020-10-15 07:35 | NUR ---
MS/RN OPENING NOTES RECEIVED PATIENT ON BED AWAKE ALERT AND ORIENTED X1 CONFUSED. PATIENT IS ON ROOM AIR SATURATING WELL. NO SIGN AND SYMPTOM OF PAIN AT THIS TIME. WILL CONTINUE TO MONITOR.
[2020-10-15 08:00] VITALS: BP 142/88
[2020-10-15 08:05] LABS: CALCIUM, SERUM 8.2 mg/dL (8.5-10.1); CREATININE 1.1 mg/dL (0.6-1.3); POTASSIUM 3.6 mmol/L (3.5-5.1)
[2020-10-15 08:07] LABS: IMMUNOGLOBULIN A, SERUM 318 mg/dL (90-386); IMMUNOGLOBULIN G, SERUM 790 mg/dL (603-1613); IMMUNOGLOBULIN M, SERUM 31 mg/dL (20-172)
[2020-10-15] MEDS: INSULIN GLARGINE, 100 UNIT/ML CARTRIDGE SQ SCH ×2 (09:00→22:34)
[2020-10-15] MEDS: LEVETIRACETAM SOL (5 ML) 100 MG/ML UDC PO SCH ×2 (09:00→21:29)
--- NOTE | 2020-10-15 09:40 | NUR ---
RN NOTES PATIENT IS OUT IN THE ROOM EVAPORATOR BY OR NURSE FOR COLOSTOMY. Addendum: 10/15/20 at 1202 by YUSRA HUMPHREY RN ERROR
--- NOTE | 2020-10-15 09:40 | NUR ---
RN NOTES PATIENT IS OUT IN THE ROOM HOME ADVISOR BY OR NURSE FOR COLONOSCOPY.
[2020-10-15] MEDS ORDERED: ANESTHESIA TRAY IN PYXIS 1 EA TRAY MC ONE (09:47)
[2020-10-15 11:07] LABS: *ANA ANTI-CENTROMERE B AB <0.2 AI (0.0-0.9); *ANA ANTI-DNA(DS) AB, QN 1 IU/mL (0-9); *ANA ANTI-JO-1 <0.2 AI (0.0-0.9); *ANA ANTICHROMATIN ANTIBODY <0.2 AI (0.0-0.9); *ANA RNP ANTIBODIES <0.2 AI (0.0-0.9); *ANA SJOGREN'S ANTI-SS-A <0.2 AI (0.0-0.9); *ANA SJOGREN'S ANTI-SS-B <0.2 AI (0.0-0.9); *ANAANTI-SCLERODERMA-70 AB <0.2 AI (0.0-0.9); *ANASMITH AB <0.2 AI (0.0-0.9)
[2020-10-15] MEDS: GLUCERNA 1.2 1,000 ML BOTTLE GT SCH ×2 (11:30→11:49)
--- NOTE | 2020-10-15 11:40 | NUR ---
MS/RN NOTES PATIENT CAME BACK FROM SURGERY. PATIENT IS ON ROOM AIR SATURATION 95%. PATIENT IN NO APPARENT RESPIRATORY DISTRESS NOTED. NO SIGN AND SYMPTOM OF PAIN NOTED AT THIS TIME. DR. REYES ORDER TO CONTINUE GT FEEDING ROBERTO CONTINUE MEDICATION PER OR NURSE. BP 132/80 PULSE 85 RR 18. WILL CONTINUE TO MONITOR.
[2020-10-15] MEDS: LEVOFLOXACIN 500 MG /D5W 100ML 500 MG in PREMIX 1 EA IV SCH (13:55)
[2020-10-15 14:07] LABS: *SPE A/G RATIO 0.9 (0.7-1.7); *SPE ALBUMIN 2.4 g/dL (2.9-4.4); *SPE ALPHA-1-GLOBULIN 0.2 g/dL (0.0-0.4); *SPE ALPHA-2-GLOBULIN 0.7 g/dL (0.4-1.0); *SPE GLOBULIN, TOTAL 2.6 g/dL (2.2-3.9); *SPE M-SPIKE Not Observed g/dL (Not Observed); *SPEGAMMA GLOBULIN 0.7 g/dL (0.4-1.8)
[2020-10-15] MEDS ORDERED: NA PHOS,M-B/NA PHOS,DI-BA 1 EA ENEMA RC PRN (15:30)
[2020-10-15 18:00] VITALS: BP 156/92
--- NOTE | 2020-10-15 19:01 | NUR ---
MS RN CLOSING NOTE PATIENT IS ON BED AWAKE. PATIENT REMAINED STABLE THROUGHOUT SHIFT. ALL NEEDS, MEDICATIONS, CARE, AND PAIN CONTROL ADMINISTERED ANTICIPATED PER ORDER. PATIENT REPOSITIONED Q2HR AND PRN. IV ACCESS INTACT, PATENT AND FLUSHING. VAIL CATHETER IN PLACE AND DRAINING YELLOW COLORED URINE. TOLERATING TUBE FEEDING WELL AT 70CC/HR. SAFETY PRECAUTIONS IN LOWEST LOCKED POSITION, HOB ELEVATED, SIDE RAILS UP X2. CALL LIGHT AND TABLE WITHIN REACH. ENEMA WAS DONE, PATIENT PASSED BOWEL MOVEMENT 1X. WILL ENDORSE TO DAY SHIFT NURSE FOR JOANNA.
[2020-10-15 20:00] VITALS: BP 138/94
--- NOTE | 2020-10-15 20:07 | NUR ---
MS RN OPENING NOTE 1PATIENT IN ROOM; A/OX1; CONFUSED. TOLERATING ROOM AIR WELL WITH NO SOB. DENIES PAIN OR DISCOMFORT AT THIS TIME. LFA#20G S/L; PATENT AND INTACT. RIVKA PICCLINE S/L; PATENT AND INTACT. GLUCERNA 1.2 @ 70ML/HR; TOLERATING FEEDINGS WELL; PEG PATENT AND INTACT. ALL NEEDS MET AT THIS TIME. SAFETY MEASURES IN PLACE: BED IN LOWEST LOCKED POSITION: SIDE RAILS UPX2; AND CALL LIGHT WITHIN EASY REACH. PATIENT IN STABLE CONDITION; WILL CONTINUE TO MONITOR FOR ANY BEHAVIORS AND CONT PLAN OF CARE.
[2020-10-16] MEDS: BLOOD SUGAR DIAGNOSTIC 1 EACH STRIP IN SCH ×3 (06:25→17:26)
[2020-10-16] MEDS: INSULIN REGULAR, HUMAN 100 UNIT/ML 3 ML VIAL SQ PRN ×2 (06:25→23:39)
--- NOTE | 2020-10-16 06:40 | NUR ---
MS RN OPENING NOTE PATIENT IN ROOM; A/OX1; CONFUSED. TOLERATING ROOM AIR WELL WITH NO SOB. DENIES PAIN OR DISCOMFORT AT THIS TIME. LFA#20G S/L; PATENT AND INTACT. RFA #20G; D5W @ 100ML/HR; PATENT AND INTACT. GLUCERNA 1.2 @ 70ML/HR; TOLERATING FEEDINGS WELL; PEG PATENT AND INTACT. ALL NEEDS MET AT THIS TIME. SAFETY MEASURES IN PLACE: BED IN LOWEST LOCKED POSITION: SIDE RAILS UPX2; AND CALL LIGHT WITHIN EASY REACH. SOFT RESTRAINT AND MITTENS TO PATIENT'S WRIST; NO SKIN BREAKDOWN; GOOD BLOOD CIRCULATION. PATIENT IN STABLE CONDITION; WILL CONTINUE TO MONITOR FOR ANY BEHAVIORS AND CONT PLAN OF CARE.
--- NOTE | 2020-10-16 06:48 | NUR ---
MS RN CLOSING NOTE PATIENT IN ROOM; A/OX1; CONFUSED. TOLERATING ROOM AIR WELL WITH NO SOB. DENIES PAIN OR DISCOMFORT AT THIS TIME. LFA#20G S/L; PATENT AND INTACT. RFA #20G; D5W @ 100ML/HR; PATENT AND INTACT. GLUCERNA 1.2 @ 70ML/HR; TOLERATING FEEDINGS WELL; PEG PATENT AND INTACT. ALL NEEDS MET AT THIS TIME. SAFETY MEASURES IN PLACE: BED IN LOWEST LOCKED POSITION: SIDE RAILS UPX2; AND CALL LIGHT WITHIN EASY REACH. SOFT RESTRAINT AND MITTENS TO PATIENT'S WRIST; NO SKIN BREAKDOWN; GOOD BLOOD CIRCULATION. PATIENT IN STABLE CONDITION; WILL ENDORSE PLAN OF CARE TO ONCOMING MORNING RN. Addendum: 10/16/20 at 0654 by RADHA SALEH RN ERROR. DISREGARD NOTE.
[2020-10-16 06:50] LABS: BASOPHILS % (AUTO) 0.7 % (0.0-2.0); EOSINOPHILS % (AUTO) 2.6 % (0.0-6.0); HEMATOCRIT 31 % (39-51); HEMOGLOBIN 10.4 g/dL (13.5-17.5); LYMPHOCYTES # (AUTO) 1.4 K/uL (0.8-4.8); LYMPHOCYTES % (AUTO) 31.7 % (20.0-44.0); MEAN CORPUSCULAR HGB CONC 33 g/dl (31.0-36.0); MEAN CORPUSCULAR VOLUME 94 fL (80-96); MONOCYTES # (AUTO) 0.4 K/uL (0.1-1.30); MONOCYTES % (AUTO) 9.9 % (2.0-12.0); NEUTROPHILS # (AUTO) 2.4 K/uL (1.8-8.9); NEUTROPHILS % (AUTO) 55.1 % (43.0-81.0); PLATELET COUNT (AUTO) 194 K/uL (150-450); RED BLOOD CELL COUNT(AUTO) 3.31 MIL/uL (4.5-6.0); WHITE BLOOD COUNT (AUTO) 4.4 K/uL (4.3-11.0)
--- NOTE | 2020-10-16 06:52 | NUR ---
MS RN CLOSING NOTE PATIENT IN ROOM; A/OX1; CONFUSED. TOLERATING ROOM AIR WELL WITH NO SOB. DENIES PAIN OR DISCOMFORT AT THIS TIME. LFA#20G S/L; PATENT AND INTACT. RIVKA PICCLINE S/L; PATENT AND INTACT. GLUCERNA 1.2 @ 70ML/HR; TOLERATING FEEDINGS WELL; PEG PATENT AND INTACT. ALL NEEDS MET AT THIS TIME. SAFETY MEASURES IN PLACE: BED IN LOWEST LOCKED POSITION: SIDE RAILS UPX2; AND CALL LIGHT WITHIN EASY REACH. PATIENT IN STABLE CONDITION; WILL ENDORSE PLAN OF CARE TO ONCOMING MORNING RN.
[2020-10-16 07:19] LABS: CALCIUM, SERUM 7.9 mg/dL (8.5-10.1); CREATININE 1.2 mg/dL (0.6-1.3); PHOSPHORUS 4.3 mg/dL (2.5-4.9); POTASSIUM 3.6 mmol/L (3.5-5.1)
--- NOTE | 2020-10-16 07:30 | NUR ---
RECEIVED PT. CONFUSED,TUBE FEEDING IN PROGRESS,REFUSING TREATMENTS.
[2020-10-16 08:00] VITALS: BP 125/77
[2020-10-16] MEDS: LEVETIRACETAM SOL (5 ML) 100 MG/ML UDC PO SCH ×3 (08:59→21:42)
[2020-10-16] MEDS: INSULIN GLARGINE, 100 UNIT/ML CARTRIDGE SQ SCH ×2 (09:00→23:25)
--- NOTE | 2020-10-16 09:00 | NUR ---
REFUSED KEPPRA VIA G-TUBE.
[2020-10-16] MEDS ORDERED: KEPPRA 500 MG in IV NS 100 ML IV SCH (10:00)
--- NOTE | 2020-10-16 10:00 | NUR ---
REFUSED AM JILLIAN.
--- NOTE | 2020-10-16 10:26 | NUR ---
SAUL VENETIAN BLIND ASSEMBLER HERE AWARE PT. REFUSED G-TUBE KEPPRA-GIVEN IV KEPPRA.
[2020-10-16] MEDS: GLUCERNA 1.2 1,000 ML BOTTLE GT SCH (12:02)
[2020-10-16] MEDS: LEVOFLOXACIN 500 MG /D5W 100ML 500 MG in PREMIX 1 EA IV SCH (14:08)
[2020-10-16 16:00] VITALS: BP 126/88
--- NOTE | 2020-10-16 18:29 | NUR ---
TOLERATING TUBE FEEDING,REFUSING INSULIN X2 TODAY.NO OTHER CHANGES.
[2020-10-16 20:00] VITALS: BP 131/90
[2020-10-17] MEDS: BLOOD SUGAR DIAGNOSTIC 1 EACH STRIP IN SCH ×5 (00:30→23:46)
[2020-10-17] MEDS: INSULIN REGULAR, HUMAN 100 UNIT/ML 3 ML VIAL SQ PRN ×3 (06:20→23:46)
--- NOTE | 2020-10-17 07:27 | NUR ---
MS RN CLOSING NOTE PATIENT IN ROOM; A/OX1; CONFUSED. TOLERATING ROOM AIR WELL WITH NO SOB. DENIES PAIN OR DISCOMFORT AT THIS TIME. LFA#20G S/L; PATENT AND INTACT. RIVKA PICCLINE S/L; PATENT AND INTACT. GLUCERNA 1.2 @ 70ML/HR; TOLERATING FEEDINGS WELL; PEG PATENT AND INTACT. F/C DRAINING YELLOW URINE; PATENT AND INTACT. ALL NEEDS MET AT THIS TIME. SAFETY MEASURES IN PLACE: BED IN LOWEST LOCKED POSITION: SIDE RAILS UPX2; AND CALL LIGHT WITHIN EASY REACH. PATIENT IN STABLE CONDITION; WILL ENDORSE PLAN OF CARE TO ONCOMING MORNING RN.
[2020-10-17 08:00] VITALS: BP 150/95
--- NOTE | 2020-10-17 08:06 | NUR ---
RN OPENING NOTE- PATIENT IN ROOM; A/OX1; CONFUSED. OPPOSITIONAL TO CARE, COMBATIVE AT TIMES TOLERATING ROOM AIR WELL WITH NO SOB. DENIES PAIN OR DISCOMFORT AT THIS TIME. LFA#20G S/L; PATENT AND INTACT. RFA #20G; D5W @ 100ML/HR; PATENT AND INTACT. GLUCERNA 1.2 @ 70ML/HR; TOLERATING FEEDINGS WELL; PEG PATENT AND INTACT. TF ALARMING. FLUSHED GT, CHANGED TUBING AND PUMP. WILL ADDRESS W NURSING SCHEDULER. ALL NEEDS MET AT THIS TIME. SAFETY MEASURES IN PLACE: BED IN LOWEST LOCKED POSITION: SIDE RAILS UPX2; AND CALL LIGHT WITHIN EASY REACH. SOFT RESTRAINT AND MITTENS TO PATIENT'S WRIST; NO SKIN BREAKDOWN; GOOD BLOOD CIRCULATION. PATIENT IN STABLE CONDITION; WILL CONTINUE TO MONITOR FOR ANY BEHAVIORS AND CONT PLAN OF CARE.
--- NOTE | 2020-10-17 08:09 | NUR ---
ADDENDUM TO ABOVE- GT PATENT AND RUNNING FINE. CHARTED ON WRONG PT
[2020-10-17] MEDS: LEVETIRACETAM SOL (5 ML) 100 MG/ML UDC PO SCH ×2 (09:28→21:11)
[2020-10-17] MEDS: INSULIN GLARGINE, 100 UNIT/ML CARTRIDGE SQ SCH ×2 (09:31→21:24)
[2020-10-17 09:37] LABS: BASOPHILS % (AUTO) 0.4 % (0.0-2.0); EOSINOPHILS % (AUTO) 2.8 % (0.0-6.0); HEMATOCRIT 32 % (39-51); HEMOGLOBIN 10.5 g/dL (13.5-17.5); LYMPHOCYTES # (AUTO) 2.1 K/uL (0.8-4.8); LYMPHOCYTES % (AUTO) 32.5 % (20.0-44.0); MEAN CORPUSCULAR HGB CONC 33 g/dl (31.0-36.0); MEAN CORPUSCULAR VOLUME 94 fL (80-96); MONOCYTES # (AUTO) 0.5 K/uL (0.1-1.30); MONOCYTES % (AUTO) 7.7 % (2.0-12.0); NEUTROPHILS # (AUTO) 3.7 K/uL (1.8-8.9); NEUTROPHILS % (AUTO) 56.6 % (43.0-81.0); PLATELET COUNT (AUTO) 221 K/uL (150-450); RED BLOOD CELL COUNT(AUTO) 3.38 MIL/uL (4.5-6.0); WHITE BLOOD COUNT (AUTO) 6.6 K/uL (4.3-11.0)
[2020-10-17 10:11] LABS: CALCIUM, SERUM 8.7 mg/dL (8.5-10.1); CREATININE 1.3 mg/dL (0.6-1.3); MAGNESIUM 2.1 mg/dL (1.8-2.4); PHOSPHORUS 5.2 mg/dL (2.5-4.9)
[2020-10-17] MEDS: LEVOFLOXACIN (250MG) 250 MG TABLET PO SCH (14:33)
[2020-10-17 16:00] VITALS: BP 128/86
--- NOTE | 2020-10-17 18:38 | NUR ---
RN CLOSING NOTE- PATIENT IN ROOM; A/OX1; CONFUSED. TOLERATING ROOM AIR WELL WITH NO SOB. NO PAIN OR DISCOMFORT NOTED AT THIS TIME. LFA#20G S/L; PATENT AND INTACT. RIVKA PICCLINE S/L; PATENT AND INTACT. GLUCERNA 1.2 @ 70ML/HR; TOLERATING FEEDINGS WELL; PEG PATENT AND INTACT. F/C DRAINING YELLOW URINE; PATENT AND INTACT. ALL NEEDS MET AT THIS TIME. SAFETY MEASURES IN PLACE: BED IN LOWEST LOCKED POSITION: SIDE RAILS UPX2; AND CALL LIGHT WITHIN EASY REACH. PATIENT IN STABLE CONDITION
--- NOTE | 2020-10-17 19:53 | NUR ---
MS RN CLOSING NOTE PATIENT IN ROOM; A/OX1; CONFUSED. TOLERATING ROOM AIR WELL WITH NO SOB. DENIES PAIN OR DISCOMFORT AT THIS TIME. LFA#20G S/L; PATENT AND INTACT. RIVKA PICCLINE S/L; PATENT AND INTACT. GLUCERNA 1.2 @ 70ML/HR; TOLERATING FEEDINGS WELL; PEG PATENT AND INTACT. F/C DRAINING YELLOW URINE; PATENT AND INTACT. ALL NEEDS MET AT THIS TIME. SAFETY MEASURES IN PLACE: BED IN LOWEST LOCKED POSITION: SIDE RAILS UPX2; AND CALL LIGHT WITHIN EASY REACH. PATIENT IN STABLE CONDITION; WILL CONT PLAN OF CARE.
[2020-10-17 20:00] VITALS: BP 152/93
--- NOTE | 2020-10-18 | NUR ---
MS RN NOTE RECEIVED REPORT FROM FREEMAN GARCIA FOR TRANSFER OF CARE. PATIENT AWAKE IN BED, ALERT/ORIENTED X 1, CONFUSED. NO S/S OF DISTRESS OR SOB NOTED, PT STABLE ON RA, BREATHING EVEN AND UNLABORED. PT DENIES PAIN AT THIS TIME. GLUCERNA 1.2 RUNNING @ 70 ML/HR, PT TOLERATING WELL. F/C IN PLACE AND DRAINING YELLOW URINE. SAFETY MEASURES IN PLACE: BED LOCKED IN LOWEST POSITION, BED ALARM ON, HOB ELEVATED, CALL LIGHT WITHIN REACH. WILL CONTINUE TO MONITOR THROUGHOUT SHIFT.
[2020-10-18] MEDS: BLOOD SUGAR DIAGNOSTIC 1 EACH STRIP IN SCH ×3 (06:30→17:11)
[2020-10-18 06:33] LABS: BASOPHILS % (AUTO) 0.8 % (0.0-2.0); EOSINOPHILS % (AUTO) 3.5 % (0.0-6.0); HEMATOCRIT 33 % (39-51); HEMOGLOBIN 11.2 g/dL (13.5-17.5); LYMPHOCYTES # (AUTO) 1.9 K/uL (0.8-4.8); LYMPHOCYTES % (AUTO) 37.2 % (20.0-44.0); MEAN CORPUSCULAR HGB CONC 34 g/dl (31.0-36.0); MEAN CORPUSCULAR VOLUME 92 fL (80-96); MONOCYTES # (AUTO) 0.4 K/uL (0.1-1.30); MONOCYTES % (AUTO) 7.2 % (2.0-12.0); NEUTROPHILS # (AUTO) 2.6 K/uL (1.8-8.9); NEUTROPHILS % (AUTO) 51.3 % (43.0-81.0); PLATELET COUNT (AUTO) 234 K/uL (150-450); WHITE BLOOD COUNT (AUTO) 5.1 K/uL (4.3-11.0)
[2020-10-18 07:03] LABS: CALCIUM, SERUM 8.6 mg/dL (8.5-10.1); CREATININE 1.4 mg/dL (0.6-1.3); MAGNESIUM 2.1 mg/dL (1.8-2.4); PHOSPHORUS 5.2 mg/dL (2.5-4.9); POTASSIUM 3.7 mmol/L (3.5-5.1)
--- NOTE | 2020-10-18 07:20 | NUR ---
MS RN CLOSING NOTES PATIENT SLEEPING IN BED, APPEARS COMFORTABLE. NO S/S OF DISTRESS OR SOB NOTED, PT STABLE ON RA, BREATHING EVEN AND UNLABORED. GLUCERNA 1.2 RUNNING @ 70 ML/HR, PT TOLERATING WELL, TUBE FEEDING STOPPED FROM 2 AM - 6 AM. F/C IN PLACE AND DRAINING YELLOW URINE, OUTPUT OF 650 ML. MEDICATIONS GIVEN ORDERED, PATIENT NEEDS MET THROUGHTOUT SHIFT. PATIENT REMAINED STABLE THROUGHOUT SHIFT. SAFETY MEASURES IN PLACE: BED LOCKED IN LOWEST POSITION, BED ALARM ON, HOB ELEVATED, CALL LIGHT WITHIN REACH. WILL ENDORSE TO DAY SHIFT NURSE FOR CONTINUITY OF CARE.
[2020-10-18] MEDS: LEVETIRACETAM SOL (5 ML) 100 MG/ML UDC PO SCH ×2 (08:25→21:14)
[2020-10-18] MEDS: INSULIN GLARGINE, 100 UNIT/ML CARTRIDGE SQ SCH ×2 (08:31→21:22)
[2020-10-18 09:04] VITALS: BP 120/82
[2020-10-18] MEDS: LEVOFLOXACIN (250MG) 250 MG TABLET PO SCH (13:43)
[2020-10-18 16:35] VITALS: BP 149/91
--- NOTE | 2020-10-18 19:37 | NUR ---
MS RN OPENING NOTES Patient is awake, A&Ox1. Azeri speaking. Bed alarm on, bed in lowest position, 3 side rails up, HOB elevated for aspiration risk. RIVKA PICC patent and no signs of infection. In no obvious distress. Patient denies pain.
[2020-10-18 20:00] VITALS: BP 130/89
[2020-10-19] MEDS: BLOOD SUGAR DIAGNOSTIC 1 EACH STRIP IN SCH ×3 (00:56→12:00)
--- NOTE | 2020-10-19 06:41 | NUR ---
MS RN CLOSING NOTES Patient is A&Ox1. VSS. Blood sugars WNL no coverage with regular insulin required. Tolerated Tf well -no residual. Patient is combative with care, 2 person when checking blood sugar, giving insulin, flushing G tube. 3 person assist when changing/cleaning. Patient swings and tries to punch/grab with L arm, yells some Kyrgyz and some made up words at staff. Not able to be cooperative enough to draw AM labs, not enough blood return from PICC line. Valencia catheter 850cc clear yellow output. No cough at this time. No signs of aspiration. Will endorse to oncoming shift.
--- NOTE | 2020-10-19 07:45 | NUR ---
MS RN OPENING NOTE REPORT RECEIVED. ASSESSMENT COMPLETE. RECEIVED PT SLEEPING INTERMITTENTLY IN BED. NO ACUTE DISTRESS NOTED. VSS, AFEBRILE NO SOB NOTED. PT A/OX1; CONFUSED. TOLERATING ROOM AIR. NO S/SX OF PAIN AND/OR DISTRESS AT PRESENT TIME. . RIVKA PICCLINE S/L, PATENT, INTACT AND FLUSHED. . PEG PATENT AND FLUSHED GLUCERNA 1.2 RUNNING AT @ 70ML/HR; TOLERATING FEEDINGS WELL. NO RESIDUAL. F/C DRAINING YELLOW URINE; PATENT AND INTACT. ALL NEEDS MET AT PRESENT TIME. TIME. SAFETY MEASURES IN PLACE: BED IN LOWEST LOCKED POSITION WITHE HEAD OF BED ELEVATED. SIDE RAILS UPX2; AND CALL LIGHT WITHIN EASY REACH. PATIENT IN STABLE CONDITION, WILL CONT TO MONITOR
[2020-10-19 08:00] VITALS: BP 133/75
--- NOTE | 2020-10-19 08:25 | NUR ---
WOUND CARE CONSULT: PT PRESENTS WITH SACRAL SCARRING AND PEELING SKIN WITH RASH TO BUTTOCKS. RECOMMENDATIONS MADE FOR SKIN PROTECTION. DISCUSSED WITH NURSING STAFF. VAIL CATH AND HEALED TRACH NOTED. IN AGREEMENT WITH PLAN OF CARE. ISOFLEX LOW AIRLOSS BED TO BE PLACED. Addendum: 10/19/20 at 0826 by ALLIE BAKER WNDNU Amended: Links added.
[2020-10-19] MEDS ORDERED: CLOTRIMAZOLE 1% 15 GM TUBE TP SCH (09:00)
[2020-10-19] MEDS: LEVETIRACETAM SOL (5 ML) 100 MG/ML UDC PO SCH (09:21)
[2020-10-19] MEDS: INSULIN GLARGINE, 100 UNIT/ML CARTRIDGE SQ SCH (09:23)
--- NOTE | 2020-10-19 13:03 | NUR ---
RN NOTE: PT TO BE DISCHARGED THIS AFTERNOON TO [facility]. REPORT CALLED TO ALEXIS MILLARD FOR CONTINUITY OF CARE.
--- NOTE | 2020-10-19 13:50 | NUR ---
RN NOTE: PICC LINE AND VAIL CATHETER REMOVED. PT VOIDED POST REMOVAL OF 75 CC.
[2020-10-19] MEDS: LEVOFLOXACIN (250MG) 250 MG TABLET PO SCH (14:17)
--- NOTE | 2020-10-19 14:19 | NUR ---
RN NOTE: NICHO ENGINEERING TECHNICAL SPECIALIST IN TO ASSESS PT. ORDER FOR PICC LINE TIP CULTURE AND LEVAQUIN TO BE CONTINUED IV X 4 DAYS. ENGINEERING TECHNICAL SPECIALIST NOTIFIED OF PICC LINE PREVIOUS REMOVAL. [facility].
--- NOTE | 2020-10-19 14:40 | NUR ---
SIENE MAKER NOTE; PT DISCHARGED TO [facility] IN STABLE CONDITION. VSS, AFEBRILE NO SOB NOTED. PICC LINE AND VAIL CATHETER REMOVED PRIOR TO DISCHARGE. PT A+OX1, CONFUSED AND DISORIENTED. FULL CARE FOR ADLS. PEG TUBE PATENT AND FLUSHED. PT TRANSFERRED TO [facility] [place]. REPORT CALLED PREVIOUSLY TO ALEXIS MILLARD FOR CONTINUITY OF CARE. PT LEFT THE UNIT VIA [facility] [place] WITH EMS PRESENT AT 1440
== END 2020-10-19 15:10 | DRG 720 ==
LOC: ER 00:30 → ICU 03:41 → TELE1 10-08 10:30 → TELE 10-08 17:01 → MED 10-11 09:24
PROVIDERS: ADMIT Nurse Practitioner Acute Care
PROC: 02HV33Z Insertion of Infusion Device into Superior Vena Cava, Percutaneous Approach (ICD-10-PCS; principal; 2020-10-07)
PROC: B548ZZA Ultrasonography of Superior Vena Cava, Guidance (ICD-10-PCS; 2020-10-07)
PROC: 0DJD8ZZ Inspection of Lower Intestinal Tract, Via Natural or Artificial Opening Endoscopic (ICD-10-PCS; 2020-10-15)
DX: A40.8 Other streptococcal sepsis (principal); I21.A1 Myocardial infarction type 2; J96.01 Acute respiratory failure with hypoxia; J69.0 Pneumonitis due to inhalation of food and vomit; E11.00 Type 2 diabetes mellitus with hyperosmolarity without nonketotic hyperglycemic-hyperosmolar coma (NKHHC); N17.0 Acute kidney failure with tubular necrosis; R65.21 Severe sepsis with septic shock; G93.41 Metabolic encephalopathy; R13.10 Dysphagia, unspecified; R53.2 Functional quadriplegia; E11.65 Type 2 diabetes mellitus with hyperglycemia; D68.59 Other primary thrombophilia; D61.818 Other pancytopenia; E87.0 Hyperosmolality and hypernatremia; G40.909 Epilepsy, unspecified, not intractable, without status epilepticus; Z93.1 Gastrostomy status; E86.0 Dehydration; Z20.822 Contact with and (suspected) exposure to COVID-19; I10 Essential (primary) hypertension; Z86.16 Personal history of COVID-19; E86.1 Hypovolemia; E87.2 Acidosis; K56.41 Fecal impaction; E87.6 Hypokalemia; D69.6 Thrombocytopenia, unspecified; R74.01 Elevation of levels of liver transaminase levels; C26.9 Malignant neoplasm of ill-defined sites within the digestive system
CPT/HCPCS: 36415; 36569; 36600; 71045-TC; 76770-TC; 80048-TC; 80061-TC; 80076-TC; 80202-TC; 81001; 82010-TC; 82272-TC; 82378; 82533; 82728-TC; 82784; 82803-TC; 82962-TC; 83540-TC; 83605-TC; 83690-TC; 83735-TC; 84100-TC; 84155; 84165; 84443-TC; 84484-TC; 85025-TC; 85610-TC; 85730-TC; 86225; 86235; 86334; 86431-TC; 86706; 86803; 87040-TC; 87081-TC; 87186-TC; 87340; 93307-TC; A4216; C1751; C9803; G0378; J1720; J1815; J1953; J1956; J2405; J2543; J2704; J3370; J3480; J3490; J7030; J7050; J7060; Q9967